=== PATIENT | male | born 1995 | race Caucasian/White ===

== ENCOUNTER 2018-12-08 01:44 | Emergency (ER) | payer SELFPAY ==
--- NOTE | 2018-12-08 02:10 | EDM.PDOC ---
ED HPI GENERAL MEDICAL PROBLEM - General Chief Complaint: Drug or Alcohol Abuse Stated Complaint: FALL VIA [place] Time Seen by Provider: 12/08/18 02:02 Source of Information: Reports: Patient, Family, RN Notes Reviewed History Limitations: Reports: Physical Impairment - History of Present Illness INITIAL COMMENTS - FREE TEXT/NARRATIVE: 23-year-old gentleman presents to the emergency department today following a fall at the [facility] on [place] this happened about 2 hours prior there was no loss of consciousness however he was confused after the event he is complaining of right eye pain impact was in the back of his skull. Friends are present able to provide some history apparently he had a head injury about 2 weeks ago slipped in his driveway with concussion-like symptoms. The review of systems is therefore limited right eye Pain Score (Numeric/FACES): 8 - Related Data Allergies Allergy/AdvReac Type Severity Reaction Status Date / Time Penicillins Allergy Rash Verified 12/08/18 01:47 Home Meds: Home Meds levETIRAcetam [Keppra] 250 mg PO BID 12/08/18 [History] Past Medical History Musculoskeletal History: Reports: Fracture Neurological History: Reports: Concussion, Seizure Social & Family History - Tobacco Use Smoking Status *Q: Never Smoker - Recreational Drug Use Recreational Drug Use: No ED ROS GENERAL - Review of Systems Review Of Systems: ROS reveals no pertinent complaints other than HPI. ED EXAM, NEURO - Physical Exam Exam: See Below Exam Limited By: Physical Impairment General Appearance: Alert, Other (Confused) Eye Exam: Bilateral Eye: EOMI, Normal Fundi, Normal Inspection, PERRL Ears: Normal External Exam, Normal Canal, Hearing Grossly Normal, Normal TMs Nose: Normal Inspection, Normal Mucosa, No Blood Throat/Mouth: Normal Inspection, Normal Lips, Normal Teeth, Normal Gums, Normal Oropharynx, Normal Voice, No Airway Compromise Head Exam: Atraumatic, Normocephalic Neck: Normal Inspection, Supple, Non-Tender, Full Range of Motion Respiratory/Chest: No Respiratory Distress, Lungs Clear, Normal Breath Sounds, No Accessory Muscle Use, Chest Non-Tender Cardiovascular: Regular Rate, Rhythm, No Murmur GI/Abdominal: Soft, Non-Tender Extremities: Normal Inspection Skin Exam: Warm Course - Vital Signs Last Recorded V/S: Last Vital Signs Temp 95.3 F L 12/08/18 01:55 Pulse 76 12/08/18 01:55 Resp 10 L 12/08/18 01:55 BP 130/59 L 12/08/18 01:55 Pulse Ox 97 12/08/18 01:55 - Orders/Labs/Meds Labs: Laboratory Tests 12/08/18 12/08/18 12/08/18 Range/Units 02:15 02:15 03:04 WBC 5.7 (4.5-11.0) K/uL RBC 4.76 (4.30-5.90) M/uL Hgb 13.8 (12.0-15.0) g/dL Hct 40.8 (40.0-54.0) % MCV 86 (80-98) fL MCH 29 (27-31) pg MCHC 34 (32-36) % Plt Count 228 (150-400) K/uL Neut % (Auto) 48 (36-66) % Lymph % (Auto) 40 (24-44) % [place]calfe % (Auto) 11 H (2-6) % Eos % (Auto) 1 L (2-4) % Baso % (Auto) 1 (0-1) % Sodium 144 (140-148) mmol/L Potassium 3.6 (3.6-5.2) mmol/L Chloride 105 (100-108) mmol/L Carbon Dioxide 23 (21-32) mmol/L Anion Gap 15.6 H (5.0-14.0) mmol/L BUN 9 (7-18) mg/dL Creatinine 0.7 L (0.8-1.3) mg/dL Est Cr Clr Drug Dosing 166.57 mL/min Estimated GFR (MDRD) > 60 (>60) Glucose 103 (74-106) mg/dL Calcium 8.6 (8.5-10.1) mg/dL Total Bilirubin 0.6 (0.2-1.0) mg/dL AST 24 (15-37) U/L ALT 23 (12-78) U/L Alkaline Phosphatase 67 (46-116) U/L Total Protein 7.3 (6.4-8.2) g/dL Albumin 3.9 (3.4-5.0) g/dL Globulin 3.4 (2.3-3.5) g/dL Albumin/Globulin Ratio 1.1 L (1.2-2.2) Ethyl Alcohol 223 mg/dL Departure - Departure Time of Disposition: 03:27 Disposition: Home, Self-Care 01 Condition: Fair Clinical Impression: Head injury Qualifiers: Encounter type: initial encounter Qualified Code(s): S09.90XA - Unspecified injury of head, initial encounter Alcohol intoxication Qualifiers: Complication of substance-induced condition: uncomplicated Qualified Code(s): F10.920 - Alcohol use, unspecified with intoxication, uncomplicated - Discharge Information Referrals: PCP,None [Primary Care Provider] - Forms: ED Department Discharge Additional Instructions: lease follow-up with your primary care provider upon return home if no improvement call return to the emergency department worsening of symptoms - Assessment/Plan Plan: Assessment Acuity = acute Site and laterality = head injury with alcohol intoxication Etiology = secondary to fall with EtOH Manifestations = none Location of injury = Home Lab values = CBC, CMP unremarkable EtOH is 223 CT scan of the head shows no acute process Plan We were able to get him up and ambulate him to the eye vision station he was able to do 20/50 in each eye he feels the pain in his eye has resolved initially had some difficulty seeing out of the right eye which now has improved. I also discussed his case with his mom and he has family members present her willing to take him home, have him follow-up with his primary care upon return home if not better This note was dictated using [employer] voice recognition software please call with any questions on syntax or grammar.
--- NOTE | 2018-12-08 03:02 | CRLCT ---
INDICATION: Head injury after fall, right eye pain TECHNIQUE: CT head without contrast. COMPARISON: None FINDINGS: CSF spaces: Within normal limits for age. Brain parenchyma: The blackman-white differentiation is normal. No sign of mass, hemorrhage, or midline shift. Skull base and calvarium: Fluid in the right frontal sinus and patchy opacification of bilateral ethmoid air cells. The mastoid air cells demonstrate no acute or significant findings. The visualized orbits are grossly unremarkable. No skull fractures. IMPRESSION: No intracranial hemorrhage or skull fracture. Fluid in the right frontal sinus and by bilateral ethmoid air cells. Please note that all CT scans at this facility use dose modulation, iterative reconstruction, and/or weight-based dosing when appropriate to reduce radiation dose to as low as reasonably achievable. Dictated by Yuki Brown MD @ Dec 08 2018 2:58AM Signed by Dr. Yuki Brown @ Dec 08 2018 3:01AM
== END 2018-12-08 03:38 | disposition home or self-care (01) ==
LOC: JP.ED 01:44
DX: S09.90XA Unspecified injury of head, initial encounter (principal); F10.129 Alcohol abuse with intoxication, unspecified; Z88.0 Allergy status to penicillin; Y90.7 Blood alcohol level of 200-239 mg/100 ml; W00.0XXA Fall on same level due to ice and snow, initial encounter
CPT/HCPCS: 36415; 70450; 80053; 85025; 99284; G0480